=== PATIENT | female | born 1935 | race Caucasian/White ===

== ENCOUNTER → 2016-06-23 | Outpatient (CLI) | payer OTHER, MEDICARE ==
--- NOTE | 2016-06-23 12:47 | MA ---
Diagnostic Bilateral Digital Mammogram With Tomosynthesis Clinical Indications: Left axillary tenderness, CLL versus lymphoma Technique: Standard digital cephalocaudal and tomosynthesis mediolateral oblique projections are obt ained. The digital images were processed by the [employer] computer aided detection system. Comparison: August 2014 and March 2008 Breast density: B; There are scattered fibroglandular densities. Findings: CAD was reviewed. No suspicious findings are identified in either breast. Some prominent l ymph nodes in the left axilla were present in 2014 but not present in 2007 Impression: Further imaging of the symptomatic area in the left axillary segment and axilla with ultr asound area in This will be performed shortly. Recommendation: BI-RADS 0 additional imaging left breast, axillary segment. [facility] will send a result letter to the patient. Negative mammography should not preclude additional workup of a clinically suspicious finding. The patient's information is entered into a reminder system with a target due date for her next mammo gram.
--- NOTE | 2016-06-23 13:19 | US ---
Left Axillary Ultrasound History: Tenderness, elevated white blood cell count, lymphoma versus CLL Technique: High frequency imaging of the left axilla and axillary segment Findings: Several prominent left axillary nodes are present. The cortex is thickened abnormally nodul ar. Impression: Abnormal left axillary lymph nodes. If clinically indicated, ultrasound-guided lymph node cortex core biopsy could be performed, placing samples in formalin in Richar's solution, if further di agnostic tissue is required. Please note that these nodes have not significantly changed in size on m ammography since 2014, but are new since 2008. BI-RADS 4. Chronically abnormal left axillary lymph nodes.
== END ==
LOC: FIMAGING 11:59
PROVIDERS: ATTEND Internal Medicine Hematology & Oncology
DX: N64.4 Mastodynia (principal); D72.829 Elevated white blood cell count, unspecified; R92.8 Other abnormal and inconclusive findings on diagnostic imaging of breast
CPT/HCPCS: 76641; G0204; G0279

== ENCOUNTER → 2016-06-30 | Outpatient (CLI) | payer OTHER, MEDICARE | LOC: FIMAGING 12:38 | PROVIDERS: ATTEND Family Medicine | DX: R94.02 Abnormal brain scan (principal); R47.01 Aphasia; H53.9 Unspecified visual disturbance ==

== ENCOUNTER → 2016-07-07 | Outpatient (CLI) | payer OTHER, MEDICARE ==
[~2016-07-07] MED LIST: LIDOCAINE 1% 30 ML SDV ONE; NA BICARBONATE 50 MEQ/50 ML VIAL ONE
[2016-07-09 11:06] LABS: FINAL DIAGNOSIS See Comments; MICROSCOPIC DESCRIPTION See Comments
== END ==
LOC: FIMAGING 12:49
PROVIDERS: ATTEND Radiology Diagnostic Radiology
PROC: 07B63ZX Excision of Left Axillary Lymphatic, Percutaneous Approach, Diagnostic (ICD-10-PCS; principal; 2016-07-07)
DX: R59.0 Localized enlarged lymph nodes (principal); D72.829 Elevated white blood cell count, unspecified; Z90.12 Acquired absence of left breast and nipple
CPT/HCPCS: 88184-90; 88185-91

== ENCOUNTER 2016-12-20 09:31 | Inpatient (IN) | payer OTHER, MEDICARE ==
--- NOTE | 2016-12-20 09:42 | EDPHY ---
H & P Stated Complaint: Weak, black stools x 5 days HPI/ROS: CHIEF COMPLAINT: Weak, black stools HISTORY OF PRESENT ILLNESS: This patient is a 81 year old female complaining of weakness and five day history of black stools. Her stools have been well-formed, and she states they are not tarry. She has never had dark stools in the past. She denies consumption of beets, Pepto-Bismol, or iron pills. She does not take NSAIDs with the exception of 1 baby aspirin daily.. She felt alright until Monday ( two days ago), when she began to feel very weak. After minimal exertion with yard-work on Monday morning, she felt quite fatigued and went to bed. She slept all day and night Monday and Monday. This morning, she continues to feel weak, fatigued, and short of breath. She feels "off" when standing, weak and unbalanced. She has developed some lower back pain and intermittent abdominal pain as well. She has occasional nausea, and states she has no appetite. Here in the emergency department, her back pain has resolved. She denies chest pain, fever, vomiting, or other associated symptoms. She has never had a colonoscopy but believes that she might have a sigmoidoscopy about 20 years ago. REVIEW OF SYSTEMS: A ten point review of systems was performed and is negative with the exception of the items mentioned in the HPI. She was bitten on the left eyelid by an insect 2 days ago and continues with eyelid redness. - Personal History Current Tetanus Diphtheria and Acellular Pertussis (TDAP): Yes - Medical/Surgical History PMH: 1. Non-Hodgkin's lymphoma 2. Corneal transplant, blind in the right eye 3. Hypertension 4. Hospitalized for pneumonia and hyponatremia 5. Vertigo Hx Asthma: No Hx Chronic Respiratory Disease: No Hx Diabetes: No Hx Cardiac Disease: No Hx Renal Disease: No Hx Cirrhosis: No Hx Alcoholism: No Hx HIV/AIDS: No Hx Splenectomy or Spleen Trauma: No - Social History Smoking Status: Never smoked Alcohol Use: None Additional Social History: [place]. She does not use tobacco products. No alcohol use. No illicit drugs. - Physical Exam Exam: General Appearance: Alert. Vital signs reviewed. Heart rate 84, blood pressure 108/69. Eyes: Erythema with mild swelling of the left upper eyelid. OD with cloudy cornea. Anicteric. ENT, Mouth: Mucous membranes are moist, no oropharyngeal erythema or edema. Neck: No lymphadenopathy, supple. Respiratory: Lungs are clear to auscultation; no wheezes, rales, or rhonchi. Cardiovascular: Regular rate and rhythm; no murmur, rub, or gallop. Gastrointestinal: Abdomen is soft and nontender, no masses or organomegaly, bowel sounds normal. Rectal: Black stool on glove. Formws stool in vault. Skin: Warm and dry, no rashes on exposed skin, normal color. Back: Nontender to palpation over the thoracolumbar spine. No CVAT. Extremities: No lower extremity edema, no calf tenderness or swelling. Neurological: Alert and oriented. Moving all four extremities easily and equally. Psychiatric: Normal affect. Constitutional: Initial Vital Signs Temperature (C) 36.5 C 12/20/16 09:32 Heart Rate 84 12/20/16 09:32 Respiratory Rate 18 12/20/16 09:32 Blood Pressure 108/69 12/20/16 09:32 O2 Sat (%) 96 12/20/16 09:32 O2 Delivery Mode Room Air Allergies/Adverse Reactions: No Known Allergies Allergy (Unverified 12/20/16 13:24) Home Medications: Medication Instructions Recorded Dorzolamide/Timolol [Cosopt (*)] 1 drops RTEYE BID 12/20/16 Medical Decision Making - Diagnostics EKG Interpretation: 12 lead EKG is interpreted in Trace master View by emergency department physician. ED Course/Re-evaluation: 81-year-old female with what appears to be GI bleeding. Initial hemoglobin and hematocrit are 10 and 30. Stool is Hemoccult positive. Orthostatic vital signs show drop from 102-73 while sitting to 77/56 while standing. She became lightheaded and dizzy when standing. She received IV Protonix in the emergency department. Spoke with Dr. Crowell, gastroenterology. He requests that she be NPO, with the expectation of endoscopy. She is being admitted to the hospitalist service. She remained stable while in the emergency department. Differential Diagnosis: Upper GI bleeding including but not limited to ulcer disease, gastritis, Domonique -Bullock tear, and esophageal varices. - Data Points Laboratory Results: Laboratory Results 12/20/16 09:50 12/20/16 09:50 12/20/16 12/20/16 12/20/16 10:10 09:50 09:50 WBC RBC Hgb Hct MCV MCH MCHC RDW Plt Count MPV Neut % (Auto) Lymph % (Auto) Otero % (Auto) Eos % (Auto) Baso % (Auto) Nucleat RBC Rel Count Absolute Neuts (auto) Absolute Lymphs (auto) Absolute Monos (auto) Absolute Eos (auto) Absolute Basos (auto) Absolute Nucleated RBC Immature Gran % Seg Neutrophils % Lymphocytes % Monocytes % Eosinophils % Immature Gran # Absolute Seg Neuts Absolute Lymphocytes Absolute Monocytes Absolute Eosinophils RBC/WBC/PLT Morphology Atypical Lymphocytes Platelet Estimate Smear Review By PT 13.4 SEC SEC (12.0-15.0) INR 1.03 (0.83-1.16) APTT 26.3 SEC SEC (23.0-38.0) Sodium 140 mEq/L mEq/L (134-144) Potassium 4.0 mEq/L mEq/L (3.5-5.2) Chloride 108 mEq/L mEq/L (97-110) Carbon Dioxide 22 mEq/l mEq/l (22-31) Anion Gap 10 mEq/L mEq/L (8-16) BUN 45 mg/dL H mg/dL (7-23) Creatinine 1.0 mg/dL mg/dL (0.6-1.0) Estimated GFR 53 Glucose 99 mg/dL mg/dL (70-100) Calcium 9.1 mg/dL mg/dL (8.5-10.4) Stool Occult Bld Scrn POSITIVE H (NEGATIVE) 12/20/16 09:50 WBC 21.23 10^3/uL H 10^3/uL (3.80-9.50) RBC 3.26 10^6/uL L 10^6/uL (4.18-5.33) Hgb 10.1 g/dL L g/dL (12.6-16.3) Hct 30.9 % L % (38.0-47.0) MCV 94.8 fL fL (81.5-99.8) MCH 31.0 pg pg (27.9-34.1) MCHC 32.7 g/dL g/dL (32.4-36.7) RDW 13.7 % % (11.5-15.2) Plt Count 215 10^3/uL 10^3/uL (150-400) MPV 10.6 fL fL (8.7-11.7) Neut % (Auto) Not Reported Lymph % (Auto) Not Reported Otero % (Auto) Not Reported Eos % (Auto) Not Reported Baso % (Auto) Not Reported Nucleat RBC Rel Count 0.0 % % (0.0-0.2) Absolute Neuts (auto) Not Reported Absolute Lymphs (auto) Not Reported Absolute Monos (auto) Not Reported Absolute Eos (auto) Not Reported Absolute Basos (auto) Not Reported Absolute Nucleated RBC 0.00 10^3/uL 10^3/uL (0-0.01) Immature Gran % Not Reported Seg Neutrophils % 30 % % Lymphocytes % 61 % % Monocytes % 4 % % Eosinophils % 5 % % Immature Gran # Not Reported Absolute Seg Neuts 6.37 10^/uL 10^/uL (1.70-6.50) Absolute Lymphocytes 12.95 10^3/uL H 10^3/uL (1.00-3.00) Absolute Monocytes 0.85 10^3/uL H 10^3/uL (0.30-0.80) Absolute Eosinophils 1.06 10^3/uL H 10^3/uL (0.03-0.40) RBC/WBC/PLT Morphology NORMAL (NORMAL) Atypical Lymphocytes 1+ H Platelet Estimate ADEQUATE (ADEQ) Smear Review By Pending PT INR APTT Sodium Potassium Chloride Carbon Dioxide Anion Gap BUN Creatinine Estimated GFR Glucose Calcium Stool Occult Bld Scrn Medications Given: Pantoprazole Sodium 80 mg/ (Sodium Chloride) 100 mls @ 10 mls/hr IV Q10H [facility] Stop: 06/18/17 13:14 Last Admin: 12/20/16 14:18 Dose: 100 mls Discontinued Medications Pantoprazole Sodium 80 mg/ (Sodium Chloride) 100 mls @ 200 mls/hr IV ONCE ONE Stop: 12/20/16 10:40 Last Admin: 12/20/16 10:26 Dose: 100 mls Erythromycin Lactobionate 500 (mg/ Sodium Chloride) 260 mls @ 260 mls/hr IV ONCE ONE PRN Reason: Protocol Stop: 12/20/16 15:18 Last Admin: 12/20/16 15:33 Dose: 260 mls Departure - Departure Disposition: [facility] Inpatient Acute Clinical Impression: GI bleed Qualifiers: GI bleed type/associated pathology: unspecified gastrointestinal hemorrhage type Qualified Code(s): K92.2 - Gastrointestinal hemorrhage, unspecified Condition: Fair Report Scribed for: Mary Ramos Report Scribed by: Magaly Sosa Date of Report: 12/20/16 Physician Review and Approval Statement: 12/20/16 09:42 Portions of this note were transcribed by the medical attendant. I, Dr. Mary Ramos, personally performed the history, physical exam, and medical decision- making; and confirmed the accuracy of the information in the transcribed note.
[2016-12-20] MEDS ORDERED: PANTOPRAZOLE SODIUM 80 MG in NS 100 ML IV ONE (10:11)
[2016-12-20 10:21] LABS: ADD MORPH? NO; ADD SCAN? YES; ATYPICAL LYMPHOCYTE FLAG 20 (0-99); FRAGMENT RBC FLAG 0 (0-99); HEMATOCRIT 30.9 % (38.0-47.0); HEMOGLOBIN 10.1 g/dL (12.6-16.3); LEFT SHIFT FLG 0 (0-99); LIPEMIA HEMOLYSIS FLAG 80 (0-99); MEAN CELL HEMOGLOBIN CONCENTR. 32.7 g/dL (32.4-36.7); MEAN CELL VOLUME 94.8 fL (81.5-99.8); MEAN PLATELET VOLUME 10.6 fL (8.7-11.7); PLATELET CLUMPS FLAG 0 (0-99); PLATELET COUNT 215 10^3/uL (150-400); RED BLOOD CELL COUNT 3.26 10^6/uL (4.18-5.33); RED CELL DISTRIBUTION WIDTH 13.7 % (11.5-15.2)
[2016-12-20 10:26] LABS: ANION GAP 10 mEq/L (8-16); CALCIUM 9.1 mg/dL (8.5-10.4); CARBON DIOXIDE 22 mEq/l (22-31); CHLORIDE 108 mEq/L (97-110); GLOMERULAR FILTRATION RATE 53; GLUCOSE 99 mg/dL (70-100); SODIUM 140 mEq/L (134-144)
[2016-12-20 10:29] LABS: APTT 26.3 SEC (23.0-38.0); INR 1.03 (0.83-1.16); PROTIME(PATIENT) 13.4 SEC (12.0-15.0)
--- NOTE | 2016-12-20 10:30 | CPEKG ---
Heart Rate: 68 RR Interval: 882 P-R Interval: 172 QRSD Interval: 74 QT Interval: 388 QTC Interval: 413 P Boling: 12 QRS Boling: -28 T Wave Boling: 22 EKG Severity - OTHERWISE NORMAL ECG - EKG Impression: SINUS RHYTHM EKG Impression: BORDERLINE LEFT AXIS DEVIATION Electronically Signed By: Mary Ramos 20-Dec-2016 17:11:39
[2016-12-20 11:15] LABS: ADD DIFF? YES; SCAN POSITIVE
[2016-12-20 11:18] LABS: PLATELET ESTIMATE ADEQUATE (ADEQ)
[2016-12-20] MEDS ORDERED: ONDANSETRON 4 MG/2 ML VIAL IVP PRN (13:06)
[2016-12-20] MEDS ORDERED: PROMETHAZINE HCL 25 MG/ML INJ IVP PRN (13:06)
[2016-12-20] MEDS ORDERED: PANTOPRAZOLE SODIUM 80 MG in NS 100 ML IV SCH (13:15)
--- NOTE | 2016-12-20 13:47 | GHP ---
[f rep st] HISTORY AND PHYSICAL DATE OF ADMISSION: 12/20/2016 CHIEF COMPLAINT: Weakness in the setting of black stools. HISTORY OF PRESENT ILLNESS: This is a 81-year-old female with a history of non-Hodgkin lymphoma wit h persistent leukocytosis, who presented to the emergency department with weakness. She first repor ts having 1-2 black stools per day over the past 5 days. This was associated with some mild nonspec ific abdominal pain. For the past 2 days she has had no energy and has hardly even gotten out of be d. She denies any chest pain, shortness of breath, or syncope. She denies any fevers or chills. S he denies any weight loss. She denies any hematemesis or nausea or vomiting. She denies any NSAID use. She does take half of a full dose aspirin per day but has not done so for 5 days. Her appetit e has been terrible. She denies any alcohol use. PAST MEDICAL HISTORY: 1. Hypertension. 2. Vertigo. 3. Moderate mitral regurgitation and mild pulmonary hypertension. 4. Chronic kidney disease. Baseline creatinine 1.1. 5. Non-Hodgkin lymphoma with persistent leukocytosis. 6. Hospitalization for pneumonia. 7. Hospitalization in November of 2014 for chest pain at which time she underwent a stress test that wa s negative. PAST SURGICAL HISTORY: Right corneal transplant and currently blind in the right eye. Left eye wit h trabeculotomy and cataract surgery. HOME MEDICATIONS: Reviewed. Refer to [employer] for details. ALLERGIES: Benzoin. SOCIAL HISTORY: The patient denies any alcohol, tobacco, or illicit drug use. FAMILY HISTORY: Significant for congestive heart failure. REVIEW OF SYSTEMS: Comprehensive 10-point review of systems was done and was negative except for as mentioned in the HPI. PHYSICAL EXAM: VITAL SIGNS: Blood pressure 130/71, pulse of 76, respiratory rate 16, O2 sat 96% on room air, temperature afebrile. Orthostatic vital signs were done. Standing blood pressure droppe d to 77/56 from a sitting blood pressure of 102/73. GENERAL: No acute distress. HEAD: Normocepha lic, atraumatic. EYES: PERRLA. Sclerae are anicteric. The patient does have some left periorbita l erythema. MOUTH: Moist mucous membranes. NECK: Supple. No lymphadenopathy. CARDIOVASCULAR: S1, S2. No JVD. No lower extremity edema. PULMONARY: Lungs are clear. No wheezes, rales, or rho nchi. ABDOMEN: Soft, nontender, nondistended. No guarding or rebound tenderness. Normoactive bow el sounds. EXTREMITIES: No clubbing or cyanosis. NEURO: Cranial nerves 2-12 grossly intact. No focal motor or sensory deficits. SKIN: Clear. No rashes. DIAGNOSTICS: WBC 21.23, hemoglobin 10.1, hematocrit 30.9, platelets 215. INR 1.03. Sodium 140, po tassium 4, chloride 108, CO2 22, BUN 45, creatinine 1, glucose 99. Stool occult blood was positive. EKG, which I visualized and personally interpreted, shows sinus rhythm, rate 68 beats per minute, no acute ischemic changes. ASSESSMENT AND PLAN: This is a 81-year-old female presenting with: 1. Weakness, most likely due to below. 2. Suspected upper gastrointestinal bleed with melena, normocytic anemia, and elevated BUN. 3. History of non-Hodgkin lymphoma, with elevated white blood cell count of 21.23. PLAN: 1. Admit to the medical-surgical floor. 2. Blood type and screen. 3. Serial H and H. 4. Dr. Crowell from [facility] has been consulted by Dr. Ramos in the emergency department w ho plans for endoscopy later today. The patient is n.p.o. 5. Start IV Protonix drip. The patient has never undergone a screening colonoscopy, which I guess should be discussed with the patient at some point. The patient requests to be full code status. /[id number]/MODL
[2016-12-20] MEDS ORDERED: NS IV ONE (14:19)
[2016-12-20] MEDS ORDERED: ERYTHROMYCIN LACTOBIONATE IV ONE (14:19)
[2016-12-20] MEDS ORDERED: MIDAZOLAM 2 MG/2 ML VIAL ONE (15:50)
[2016-12-20] MEDS ORDERED: fentaNYL 100 MCG/2 ML INJ ONE (15:50)
[2016-12-20] MEDS ORDERED: GOLYTELY 4000 ML BTL PO ONE (16:36)
--- NOTE | 2016-12-20 16:52 | GCON ---
[f rep st] CONSULTATION PULMONARY/CRITICAL CARE CONSULTATION. DATE OF CONSULTATION: 12/20/2016 REFERRING PHYSICIAN: Shaan Johnston DO REASON FOR REFERRAL: Evaluation and management of anemia, possible GI bleed. HISTORY: This patient is a 81-year-old woman with a history of non-Hodgkin's lymphoma and chronic l eukocytosis; who presented to the emergency room today with several days of weakness. She has had several days of black stools, with some mild diffuse abdominal pain. She has been feeli ng progressively weaker and this prompted her presentation to the emergency department. She denies any chest pain, shortness of breath and has not had any syncope. She has not had any rec ent history of anemia. She has not had any fevers or chills. PAST MEDICAL HISTORY: 1. Hypertension. 2. Vertigo. 3. Mild pulmonary hypertension. 4. Chronic kidney disease with a creatinine of 1.1. 5. Non-Hodgkin's lymphoma. 6. Prior hospitalization for pneumonia. MEDICATIONS: Includes only eye drops. ALLERGIES: None. SOCIAL HISTORY: The patient denies any alcohol or tobacco use. She lives independently. FAMILY HISTORY: Positive for heart failure. REVIEW OF SYSTEMS: A 10-point review of systems adds nothing to the History of Present Illness. PHYSICAL EXAMINATION: GENERAL: The patient is awake, alert and in no acute distress. VITAL SIGNS: Blood pressure is 119/65, with a heart rate of 82, she is afebrile. Oxygen saturations are 98% on room air. HEENT: Normocephalic and atraumatic. No icterus. NECK: No JVD. Trachea is midline. CHEST: Clear to auscultation. CARDIAC: Regular rate and rhythm, without murmur. ABDOMEN: Soft, nontender. Bowel sounds are present. EXTREMITIES: No clubbing, cyanosis, or edema. NEUROLOGIC: Cranial nerves grossly intact. She has no focal motor or sensory deficits. LABORATORY: Hemoglobin is 10.1, with an MCV of 94.8. Her most recent prior hemoglobin was 14.9, on June 17. Creatinine is 1.0, with a BUN of 45. Potassium is 4.0. An INR is 1.0. ASSESSMENT: 1. Anemia. This is likely acute and related to a gastrointestinal bleed. Given the diffuse abdomi nal pain, possibilities include ischemic colitis or diverticulitis. An upper gastrointestinal bleed from gastritis or an ulcer, is also possible. The patient is hemodynamically stable and does not r equire urgent transfusion at this point, although we should prepare it, in case she were to have fur ther acute gastrointestinal bleeding and become unstable. 2. Abdominal pain. As above, this could be due to diverticulitis, ischemic colitis, or gastritis/p eptic ulcer disease. Appendicitis is also possible but less likely, given the fairly benign exam. 3. History of non-Hodgkin's lymphoma. The patient is a chronically elevated white blood count, alt beck it is somewhat higher than it was in June, (21.2, up from 11.9). RECOMMENDATIONS: 1. Type and cross packed red blood cells. 2. Large-bore IVs, that have been placed. 3. GI has been consulted, and will perform endoscopy later today. 4. Follow hemoglobin closely. 5. Started on a Protonix drip. /[id number]/MODL
--- NOTE | 2016-12-20 16:53 | SUROPNOTE ---
[facility] Operative Report - Surgery EGD Meds: 3mg versed, 150mcg fentanyl Indication: melena, and anemia Complications: none acutely Findings: 1. nl esopjhagus 2. moderate gastritis with shallow erosions in the body and antrum, no active bleeding, bx'd 3. normal duodenum 4. minimla, to no, heme in the gastric lumen IMPRESSION/RECS: 1. GI BLEED - doubt gastric erosions explain recent presentation with melena, although it is possible - recommend additional GI luminal w/u to eval further - will prep for colon tomorrow, can consider small bowel eval pending that result - clears tonight ok - npo after MN - split dose [employer] prep ordered - ok to change IV PPI to PO PPI BID - will follow, call with questions
[2016-12-20 17:44] LABS: HEMATOCRIT 22.3 % (38.0-47.0); HEMOGLOBIN 7.2 g/dL (12.6-16.3)
--- NOTE | 2016-12-20 18:43 | GCON ---
[f rep st] CONSULTATION INPATIENT CONSULTATION DATE OF CONSULTATION: 12/20/2016 REFERRING PHYSICIAN: Dr. Johnston REASON FOR CONSULTATION/CHIEF COMPLAINT: Anemia and melena. HISTORY OF PRESENT ILLNESS: The patient is a 81-year-old female who presented to the emergency room on 12/20/2016, with a chief complaint of weakness and fatigue. She reports that 2-3 days prior she was having darker stools, more frequent stools and more tar-like stools. She reports no history of prior similar symptoms. Given her weakness and the nature of her stools, she was concerned and went to the emergency room for evaluation. She reports no history of prior abdominal symptoms. She denies nausea and vomiting. She reports no heartburn or indigestion. She has had no diarrhea or constipation. She reports no history of prior peptic disease or bleeding. She does have a history of lymphoma with which she has chronic leukocytosis but does not carry a diagnosis of anemia. Her baseline hematocrit tends to be normal or only slightly depressed. ALLERGIES: None. MEDICATIONS: As an inpatient: Tylenol, eye drops, Zofran, Protonix and Phenergan. Her only home medicine was eye drops. SOCIAL HISTORY: She does not drink, smoke or use drugs. FAMILY HISTORY: Negative for peptic disease. REVIEW OF SYSTEMS: A complete 10-point review was undertaken with the patient and is negative except for those details described in the History of Present Illness. PHYSICAL EXAMINATION: GENERAL APPEARANCE: This is an elderly female in no apparent distress. EYES: Her pupils are equal, round and reactive to light and accommodation. Her sclerae are nonicteric. MOUTH AND THROAT: Her oropharynx is clear. NECK: Supple, without lymphadenopathy. HEART: Regular, without murmur. ABDOMEN: Soft, nontender, with normoactive bowel sounds. EXTREMITIES: Free of cyanosis, clubbing and edema. NEURO: Her exam is grossly nonfocal. SKIN: Warm and dry. MUSCULOSKELETAL: Her joints show no inflammation. PSYCH: Her exam reveals normal mood and affect. LABORATORY DATA: Hemoglobin of 10.1, hematocrit of 30.9, platelet count of 215 , MCV of 94. INR of 1.03. Sodium of 140, potassium of 4.0, chloride of 108, bicarb of 22. BUN of 45, creatinine of 1.0. Stool Hemoccult was positive. IMPRESSION: The patient has had melena and anemia. This is coincident with a normal MCV but elevated [id number] ratio. I am concerned about the possibility of an upper GI source of bleeding. Small bowel sources and colonic sources are also possible. Luckily, her vitals remain stable. RECOMMENDATIONS: I recommend that she undergo upper endoscopy today. She should remain n.p.o., on a proton pump inhibitor. Pending the results of her upper endoscopy, we can consider additional workup. She has never had a colonoscopy, and right-sided colonic lesions can sometimes present with melena. Small bowel sources of bleeding could also be considered; AVMs, for instance, can lead to melena, elevated [id number] ratio, et cetera, if they are in the proximal small bowel. /[id number]/MODL MTDD
[2016-12-20 20:06] LABS: HEMATOCRIT 25.2 % (38.0-47.0); HEMOGLOBIN 8.2 g/dL (12.6-16.3)
[2016-12-20] MEDS: PANTOPRAZOLE SODIUM 40 MG TAB PO SCH (20:13)
[2016-12-20] MEDS: DORZOLAMIDE/TIMOLOL 10 ML OPHT.BTL RTEYE SCH (21:13)
[2016-12-21 00:53] LABS: HEMATOCRIT 23.3 % (38.0-47.0); HEMOGLOBIN 7.7 g/dL (12.6-16.3)
[2016-12-21 07:32] LABS: HEMATOCRIT 21.1 % (38.0-47.0)
[2016-12-21] MEDS: DORZOLAMIDE/TIMOLOL 10 ML OPHT.BTL RTEYE SCH ×2 (09:21→21:29)
[2016-12-21] MEDS: PANTOPRAZOLE SODIUM 40 MG TAB PO SCH ×2 (09:21→21:29)
[2016-12-21] MEDS ORDERED: NS 500 ML IV SCH (11:00)
[2016-12-21] MEDS ORDERED: MIDAZOLAM 2 MG/2 ML VIAL ONE (12:08)
[2016-12-21] MEDS ORDERED: fentaNYL 100 MCG/2 ML INJ ONE (12:08)
--- NOTE | 2016-12-21 12:19 | PDPROPOC ---
Sedation Plan of Care Sedation Plan of Care: vital signs stable, mental status noted, patient educated of risks, benefits, alternatives, patient can tolerate sedation ASA Classification: ASA 2 Planned drugs: versed and fentanyl Mallampati Score: Class 1
--- NOTE | 2016-12-21 12:43 | SUROPNOTE ---
[facility] Operative Report - Surgery COLON Indication: obscure GI bleeding, melena, anemia Meds: 3mg versed, 75mcg fentanyl Complications: none acutely Prep: excellent Extent of Exam: terminal ileum Intra-service Time: 19minutes Findings: 1. normal TI 2. few scattered diverticuli 3. normal colon otherwise 4. no heme material seen in colon or ileum Recommendations: 1. GI Bleed - obscure - suspect bleeding resolved - may have been resolved proximal source (Dieulafoy, or other self limited gastric lesion) or small bowel source - no evidence of heme, melena, blood distally - would observe for now and consider small bowel eval with tagged cell and IR if bleeding recurs inpt - otherwise will plan outpatient capsule endoscopy to consider w/u of resolved obscure GI bleeding - no need for recall colonoscopy for screening given age - will sign off, call with questions or for evidence of recurrent bleeding
[2016-12-21 15:09] LABS: HEMATOCRIT 19.1 % (38.0-47.0)
[2016-12-21 15:19] LABS: HEMOGLOBIN 6.1 g/dL (12.6-16.3)
--- NOTE | 2016-12-21 15:37 | PDINTPN ---
Automatic Mounter Progress Note Assessment/Plan: Assessment: Anemia: Likely due to GI bleed. Hgb continues to trend down despite no active bleeding seen on colonoscopy. GI bleed: ? source, possibilities include SB source, occult upper GI source. Plan: Transfuse PRBCs. Follow Hgb. Tagged RBC scan if Hgb continues to fall. 12/21/16 15:34 12/21/16 15:35 Subjective: Feels weak, tired after colonoscopy. Objective: Vital Signs Temp Pulse Resp BP Pulse Ox 36.4 C 63 15 113/40 L 100 12/21/16 14:31 12/21/16 14:31 12/21/16 14:31 12/21/16 14:31 12/21/16 14:01 Laboratory Results 12/21/16 14:40 12/20/16 12/21/16 12/22/16 05:59 05:59 05:59 Intake Total 4065 1930 Balance 4065 1930 PT 13.4 SEC (12.0-15.0) 12/20/16 09:50 INR 1.03 (0.83-1.16) 12/20/16 09:50 Physical Exam - Physical Exam General Appearance: alert, no apparent distress EENT: normal ENT inspection Neck: normal inspection Respiratory: lungs clear, normal breath sounds Cardiac/Chest: regular rate, rhythm, No edema Abdomen: normal bowel sounds, non-tender, soft Skin: normal color, warm/dry Extremities: normal inspection Neuro/Psych: alert, normal mood/affect, oriented x 3 ICD10 Worksheet Patient Problems: Problems Problem Status Onset GI bleed Acute Hyponatremia Acute
--- NOTE | 2016-12-21 17:19 | HOSPPROG ---
Hospitalist Progress Note Assessment/Plan: DIAGNOSES: -Acute GI bleed with melenic stools of uncertain source or etiology after colonoscopy and EGD -Mild gastritis -Post hemorrhagic anemia, severe and worsening requiring transfusion of red blood cells today -Non-Hodgkin's lymphoma -History of hypertension PLANS: - transfusion of packed red blood cells today -Continue to follow hemoglobin hematocrit and vital signs and for any signs of further bleeding -If any further bleeding would do either a tagged red cell scan or angiography depending on the nature and amount of bleeding in her stability -If no diagnosis of the source at discharge would do a capsule endoscopy from clinic SUBJECTIVE: very tired but otherwise feels okay No abdominal pain chest pain shortness of breath or neurologic symptoms Has not seen any further bleeding today OBJECTIVE Vitals reviewed: currently stable without fever Checker In, my review: sinus rhythm Exam: alert oriented skin warm dry color ok resps not labored lungs clear BSs heart regular abd soft nondistended nontender, bowel sounds present limbs warm, no edema iv site ok last hemoglobin at 6.1 Objective: Vital Signs Temp Pulse Resp BP Pulse Ox 36.6 C 64 18 103/53 L 100 12/21/16 17:03 12/21/16 17:03 12/21/16 17:03 12/21/16 17:03 12/21/16 17:03 Laboratory Results 12/21/16 14:40 12/20/16 12/21/16 12/22/16 06:59 06:59 06:59 Intake Total 4065 1930 Balance 4065 1930 PT 13.4 SEC (12.0-15.0) 12/20/16 09:50 INR 1.03 (0.83-1.16) 12/20/16 09:50 ICD10 Worksheet Patient Problems: Problems Problem Status Onset GI bleed Acute Hyponatremia Acute
[2016-12-21 19:20] LABS: HEMATOCRIT 24.8 % (38.0-47.0); HEMOGLOBIN 8.1 g/dL (12.6-16.3)
[2016-12-21] MEDS: ACETAMINOPHEN 325 MG TAB PO PRN (21:32)
[2016-12-22 00:51] LABS: HEMATOCRIT 22.1 % (38.0-47.0); HEMOGLOBIN 7.2 g/dL (12.6-16.3)
[2016-12-22 05:35] LABS: HEMATOCRIT 22.9 % (38.0-47.0); HEMOGLOBIN 7.6 g/dL (12.6-16.3)
[2016-12-22] MEDS: DORZOLAMIDE/TIMOLOL 10 ML OPHT.BTL RTEYE SCH ×2 (09:29→21:47)
[2016-12-22] MEDS: ACETAMINOPHEN 325 MG TAB PO PRN (09:29)
[2016-12-22] MEDS: PANTOPRAZOLE SODIUM 40 MG TAB PO SCH ×2 (09:30→21:47)
--- NOTE | 2016-12-22 10:34 | SOAPPROG ---
SOAP Progress Note Assessment/Plan: Assessment: 1. GI Bleed - source uncertain - EGD/Colon without active bleeding or clear source - feeling better after TF of pRBCs - no melena or any BMs last night - feeling hungry Plan: 1. GI Bleed - self limited - small bowel source? - will proceed with outpt capsule endoscopy (i will arrange) - if rebleeds, prior, woudl proceed with tagged cell scan to attempt to localize - ok to advance diet - will sign off, call with questions 12/22/16 10:31 Subjective: CC: f/u bleeding S: no fever no nausea no melena feeling more energy after transfusion no pain wants to eat Objective: Vital Signs Temp Pulse Resp BP Pulse Ox 36.9 C 57 L 17 110/51 L 100 12/22/16 07:42 12/22/16 07:42 12/22/16 07:42 12/22/16 07:42 12/22/16 07:42 Laboratory Results 12/22/16 05:24 12/21/16 12/22/16 12/23/16 05:59 05:59 05:59 Intake Total 200 Balance 200 PT 13.4 SEC (12.0-15.0) 12/20/16 09:50 INR 1.03 (0.83-1.16) 12/20/16 09:50 Physical Exam - Physical Exam General Appearance: WD/WN, alert EENT: PERRL/EOMI Neck: non-tender, full range of motion Respiratory: chest non-tender, lungs clear Cardiac/Chest: normal peripheral pulses, regular rate, rhythm Abdomen: normal bowel sounds Skin: normal color Extremities: normal range of motion Neuro/Psych: no motor/sensory deficits ICD10 Worksheet Patient Problems: Problems Problem Status Onset GI bleed Acute Hyponatremia Acute
[2016-12-22 12:03] LABS: HEMATOCRIT 24.1 % (38.0-47.0)
[2016-12-22] MEDS ORDERED: SODIUM FERRIC GLUCONAT/SUCROSE 125 MG in NS 100 ML IV ONE (15:11)
--- NOTE | 2016-12-22 15:13 | HOSPPROG ---
Hospitalist Progress Note Assessment/Plan: DIAGNOSES: -Acute GI bleed with melenic stools of uncertain source or etiology after colonoscopy and EGD -Mild gastritis -Post hemorrhagic anemia, severe and worsening requiring transfusion of red blood cells today -Non-Hodgkin's lymphoma -History of hypertension -marked weakness and deconditioning PLANS: -will give some IV fluid at this time -will give iron replacement at this time -encouraged increased p. O. intake and increase activity as able -Continue to follow hemoglobin hematocrit and vital signs and for any signs of further bleeding -If any further bleeding would do either a tagged red cell scan or angiography depending on the nature and amount of bleeding in her stability -If no diagnosis of the source at discharge would do a capsule endoscopy from clinic At this time I do not think she is strong enough to do well at home will continue inpatient care here in the hospital physical occupational therapy try build up some strength before trying to send her home. Otherwise in terms of the bleeding risk is probably reasonable to send her home as soon as she is strong enough. SUBJECTIVE: More fatigued and weaker overall today. Has walked the 8 feet from her bed to the bathroom but no further. Has not gotten out of bed today other than twice to the commode. Has almost no appetite, did try to need some food and hardly got any in. Denies any nausea, abdominal pain, or bleeding OBJECTIVE Vitals reviewed: currently stable without fever [employer], my review: sinus rhythm Exam: alert oriented skin warm dry color ok resps not labored lungs clear BSs heart regular abd soft nondistended nontender, bowel sounds present limbs warm, no edema iv site ok last hemoglobin at 8.0 today after transfusion yesterday Objective: Vital Signs Temp Pulse Resp BP Pulse Ox 36.9 C 57 L 17 110/51 L 100 12/22/16 07:42 12/22/16 07:42 12/22/16 07:42 12/22/16 07:42 12/22/16 07:42 Laboratory Results 12/22/16 12:00 12/21/16 12/22/16 12/23/16 06:59 06:59 06:59 Intake Total 200 Balance 200 PT 13.4 SEC (12.0-15.0) 12/20/16 09:50 INR 1.03 (0.83-1.16) 12/20/16 09:50 ICD10 Worksheet Patient Problems: Problems Problem Status Onset GI bleed Acute Hyponatremia Acute
[2016-12-22] MEDS ORDERED: NS 1,000 ML IV SCH (15:15)
[2016-12-22 17:50] LABS: HEMATOCRIT 24.8 % (38.0-47.0); HEMOGLOBIN 8.3 g/dL (12.6-16.3)
[2016-12-23 00:42] VITALS: O2SAT 98
[2016-12-23 00:44] LABS: HEMATOCRIT 21.6 % (38.0-47.0); HEMOGLOBIN 7.1 g/dL (12.6-16.3)
[2016-12-23 06:24] LABS: HEMATOCRIT 23.6 % (38.0-47.0); HEMOGLOBIN 7.7 g/dL (12.6-16.3)
[2016-12-23 09:16] VITALS: BP 144/70; PULSE 65; RESP 16; TEMP 98.6
[2016-12-23] MEDS: PANTOPRAZOLE SODIUM 40 MG TAB PO SCH (09:25)
[2016-12-23] MEDS: DORZOLAMIDE/TIMOLOL 10 ML OPHT.BTL RTEYE SCH (09:26)
--- NOTE | 2016-12-23 16:48 | PDDCSUM ---
Discharge Summary Discharge Summary: DISCHARGE DIAGNOSES: -Acute GI bleed with melenic stools of uncertain source or etiology after colonoscopy and EGD -Mild gastritis -Post hemorrhagic anemia requiring transfusion of packed red blood cells -Non-Hodgkin's lymphoma -History of hypertension -marked weakness and deconditioning CONSULTANTS: Dr. Malka Monzon PROCEDURES: Esophagogastroduodenoscopy and colonoscopy HOSPITAL COURSE SUMMARY: This patient came in with melenic stools and lightheadedness and weakness. Her stools test positive for blood and she developed significant anemia with a hemoglobin of 6 although her vital signs were not terribly and stable. She did receive 1 unit of red blood cell transfusion and some fluid resuscitation as well as proton pump inhibitors. She did not have specific risks for bleeding other than age. She had upper and lower endoscopy tests which revealed only some mild gastritis without evidence of bleeding from that site. The source of her bleeding is uncertain. There is no further bleeding so no other imaging studies were performed. At this point she is stable for discharge from hospital. She did receive some iron intravenously here in the hospital. She will follow up with Dr. Socrates Monzon for capsule endoscopy in the outpatient setting. She will continue take proton pump inhibitors twice daily for the next 8 weeks unless we find some other cause for her hemorrhage that would indicate we could stop that therapy. PENDING TEST RESULTS: None MEDICATION CHANGES: Protonix twice daily for 8 weeks FOLLOW-UP PLAN: Follow up at [facility] next week for capsule endoscopy Greater than 35 minutes bedside and care coordination time today
== END 2016-12-23 14:20 | disposition home or self-care (01) | DRG 378 ==
LOC: INTOOBSV 12:05 → F2N 13:35 → OBSVTOIN 12-21 21:39
PROVIDERS: ADMIT Internal Medicine; ATTEND Family Medicine
PROC: 0DB68ZX Excision of Stomach, Via Natural or Artificial Opening Endoscopic, Diagnostic (ICD-10-PCS; principal; 2016-12-20 15:30)
PROC: 0DJD8ZZ Inspection of Lower Intestinal Tract, Via Natural or Artificial Opening Endoscopic (ICD-10-PCS; 2016-12-21)
PROC: 30233N1 Transfusion of Nonautologous Red Blood Cells into Peripheral Vein, Percutaneous Approach (ICD-10-PCS; 2016-12-21)
DX: K92.2 Gastrointestinal hemorrhage, unspecified (principal); D62 Acute posthemorrhagic anemia; C85.90 Non-Hodgkin lymphoma, unspecified, unspecified site; K29.70 Gastritis, unspecified, without bleeding; I10 Essential (primary) hypertension; H54.41 Blindness, right eye, normal vision left eye
CPT/HCPCS: 96365; G0378; J0171; J1364; J2250; J2405; J2916; J3010; P9016

== ENCOUNTER 2017-03-06 14:56 | Emergency (ER) | payer OTHER, MEDICARE ==
[2017-03-06 15:02] VITALS: O2SAT 94
--- NOTE | 2017-03-06 15:35 | EDPHY ---
H & P Stated Complaint: Kimo anne landed on her neck this morning. Neck still hurts Time Seen by Provider: 03/06/17 15:29 HPI/ROS: CHIEF COMPLAINT: Neck pain HISTORY OF PRESENT ILLNESS: Patient is a 81-year-old female who was loading [place] when 1 fell on top of her head. It hit her kind of in the back of her head and bent her neck forward. She has had neck pain since that time. This happened 4 hours ago. She denies other injuries. She denies loss of consciousness. She complains of left and right lateral neck pain greater to the right. Pain with turning head left and right. No weakness numbness or paralysis. Ambulating without difficulty. Drove herself to the ER. She does not take any blood thinners. REVIEW OF SYSTEMS: Constitutional: denies: chills, fever, recent illness, recent injury EENTM: denies: blurred vision, double vision, nose congestion Respiratory: denies: cough, shortness of breath Cardiac: denies: chest pain, irregular heart rate, lightheadedness, palpitations Gastrointestinal/Abdominal: denies: abdominal pain, diarrhea, nausea, vomiting, blood streaked stools Genitourinary: denies: dysuria, frequency, hematuria, pain Musculoskeletal: See HPI the Skin: denies: lesions, rash, jaundice, bruising Neurological: denies: headache, numbness, paresthesia, tingling, dizziness, weakness Hematologic/Lymphatic: denies: blood clots, easy bleeding, easy bruising Immunologic/allergic: denies: HIV/AIDS, transplant EXAM: GENERAL: Well-appearing, well-nourished and in no acute distress. HEAD: Atraumatic, normocephalic. EYES: Pupils equal round and reactive to light, extraocular movements intact, sclera anicteric, conjunctiva are normal. ENT: TMs normal, nares patent, oropharynx clear without exudates. Moist mucous membranes. NECK: No bony tenderness. No step-offs, right lateral and left lateral neck pain with movement. No deformity LUNGS: Breath sounds clear to auscultation bilaterally and equal. No wheezes rales or rhonchi. HEART: Regular rate and rhythm without murmurs, rubs or gallops. ABDOMEN: Soft, nontender, normoactive bowel sounds. No guarding, no rebound. No masses appreciated. BACK: No CVA tenderness, no spinal tenderness, step-offs or deformities EXTREMITIES: Normal range of motion, no pitting or edema. No clubbing or cyanosis. NEUROLOGICAL: Cranial nerves II through XII grossly intact. Normal speech, normal gait. 5/5 strength, normal movement in all extremities, normal sensation PSYCH: Normal mood, normal affect. SKIN: Warm, dry, normal turgor, no visible rashes or lesions. Source: Patient Exam Limitations: No limitations - Personal History Current Tetanus Diphtheria and Acellular Pertussis (TDAP): Yes - Medical/Surgical History Hx Asthma: No Hx Chronic Respiratory Disease: No Hx Diabetes: No Hx Cardiac Disease: No Hx Renal Disease: Yes Hx Cirrhosis: No Hx Alcoholism: No Hx HIV/AIDS: No Hx Splenectomy or Spleen Trauma: No Other PMH: croup, glaucoma, cornea transplant, htn, non hodgkins lymphoma, hyponatremia, PNA, CKD - Family History Significant Family History: No pertinent family hx - Social History Smoking Status: Never smoked Alcohol Use: Sober Drug Use: None Constitutional: Initial Vital Signs Temperature (C) 36.4 C 03/06/17 14:58 Heart Rate 80 03/06/17 14:58 Respiratory Rate 16 03/06/17 14:58 Blood Pressure 135/67 H 03/06/17 14:58 O2 Sat (%) 94 03/06/17 14:58 O2 Delivery Mode Room Air Allergies/Adverse Reactions: benzoin Allergy (Severe, Verified 12/20/16 17:49) Anaphylaxis Home Medications: Medication Instructions Recorded Dorzolamide/Timolol [Cosopt (*)] 1 drops RTEYE BID 12/20/16 Pantoprazole Sodium [Protonix 40mg 40 mg PO BID #120 tab 12/23/16 (*)] Medical Decision Making - Diagnostics Imaging Results: Imaging Impressions Cervical Spine CT 03/06/17 15:34 Impression: 1. No acute posttraumatic abnormality identified. If there is persistent pain or neurologic deficit, consider MRI and/or flexion and extension views, if clinically indicated. 2. Multilevel degenerative change, with moderate to severe spinal canal narrowing from C5 through C7. 3. Additional findings, as above. Findings discussed with Mohamud Middleton M.D., on March 06, [address] 03/06/17 15:34 Impression: 1. No acute intracranial findings. 2. Diffuse cerebral atrophy with periventricular and subcortical low attenuation consistent with chronic microvascular ischemic gliosis. Findings discussed with MOHAMUD MIDDLETON 03/06/2017 at 16:08. ED Course/Re-evaluation: 4:15 p.m. the patient is reassured by the CT scan. We discussed possibility of ligamentous injury although she does not have any bony pain. She thinks that her pain is likely muscular and I agree. She declines MRI. She feels much better with ice. She declined pain medication and will take Tylenol at home. Differential Diagnosis: Partial list of the Differential diagnosis considered include but were not limited to; muscle strain, fracture, spinal cord injury and although unlikely based on the history and physical exam, I also considered intracranial injury. I discussed these differential diagnoses and the plan with the patient as well as the usual and expected course. The patient understands that the diagnosis is provisional and that in medicine we are not always correct and that further workup is often warranted. Usual and customary warnings were given. All of the patient's questions were answered. The patient was instructed to return to the emergency department should the symptoms at all worsen or return, otherwise to followup with the physician as we discussed. Departure - Departure Disposition: Home, Routine, Self-Care Clinical Impression: Cervical muscle strain Qualifiers: Encounter type: initial encounter Qualified Code(s): S16.1XXA - Strain of muscle, fascia and tendon at neck level, initial encounter Condition: Fair Instructions: Cervical Strain (ED) Referrals: Bianca Welhc MD [Primary Care Provider] - As per Instructions
[2017-03-06 16:26] VITALS: BP 169/92; PULSE 85; RESP 18; TEMP 98.4
== END 2017-03-06 16:25 | disposition home or self-care (01) ==
DX: S16.1XXA Strain of muscle, fascia and tendon at neck level, initial encounter (principal); I12.9 Hypertensive chronic kidney disease with stage 1 through stage 4 chronic kidney disease, or unspecified chronic kidney disease; N18.9 Chronic kidney disease, unspecified; W20.8XXA Other cause of strike by thrown, projected or falling object, initial encounter